=== PATIENT | male | born 1945 | race Caucasian/White ===

== ENCOUNTER 2018-01-29 10:35 | Emergency (ER) | payer OTHER ==
[~2018-01-29] VITALS: Ht 172.7 cm; Wt 81.6 kg
[2018-01-29] MEDS ORDERED: METFORMIN HCL500 MG (10:45)
[2018-01-29] MEDS ORDERED: METOPROLOL SUC100 MG (10:45)
[2018-01-29] MEDS ORDERED: ASPIR 8181 MG (10:45)
[2018-01-29] MEDS ORDERED: RANITIDINE HCL300 MG (10:46)
[2018-01-29] MEDS ORDERED: HYDROCHLOROTHIA25 MG (10:46)
[2018-01-29] MEDS ORDERED: SYNTHROID50 MCG (10:49)
[2018-01-29] MEDS ORDERED: BACLOFEN10 MG (10:50)
== END 2018-01-29 15:54 | disposition home or self-care (01) ==
LOC: ER 10:35
DX: L98.8 Other specified disorders of the skin and subcutaneous tissue (principal); L03.116 Cellulitis of left lower limb

== ENCOUNTER 2020-09-09 08:43 | Outpatient (CLI) | payer OTHER ==
[~2020-09-09 08:43] MED LIST: ASPIR 8181 MG; BACLOFEN10 MG; HYDROCHLOROTHIA25 MG; METFORMIN HCL500 MG; METOPROLOL SUC100 MG; RANITIDINE HCL300 MG; SYNTHROID50 MCG
== END 2020-09-09 08:50 | disposition home or self-care (01) ==
LOC: RAD 08:43
DX: R07.89 Other chest pain (principal)

== ENCOUNTER 2021-01-30 08:42 | Outpatient (CLI) | payer OTHER | END 2021-01-30 08:43 | disposition home or self-care (01) | LOC: NUCLEAR 08:42 | DX: R60.9 Edema, unspecified (principal) ==